=== PATIENT | female | born 1940 | race Caucasian/White ===

== ENCOUNTER 2019-04-25 09:51 | Emergency (ER) | payer OTHER, MEDICARE ==
[~2019-04-25] VITALS: Ht 170.2 cm; Wt 63.5 kg
[2019-04-25] MEDS ORDERED: NORCO 5-325 TA1 EAC1 PO (12:10)
[2019-04-25] MEDS ORDERED: KEFLEX500 M1 PO (12:10)
[2019-04-25 12:17] VITALS: BP 169/72
== END 2019-04-25 12:18 | disposition home or self-care (01) ==
LOC: ER 09:51
DX: S81.812A Laceration without foreign body, left lower leg, initial encounter (principal); Z88.5 Allergy status to narcotic agent; Z88.7 Allergy status to serum and vaccine; Z88.1 Allergy status to other antibiotic agents; Z91.048 Other nonmedicinal substance allergy status; Z88.4 Allergy status to anesthetic agent; X58.XXXA Exposure to other specified factors, initial encounter; Y92.009 Unspecified place in unspecified non-institutional (private) residence as the place of occurrence of the external cause; Y93.89 Activity, other specified; Y99.8 Other external cause status

== ENCOUNTER 2019-04-30 14:40 | Inpatient (IN) | payer OTHER, MEDICARE ==
[~2019-04-30] VITALS: Ht 175.3 cm; Wt 63.5 kg
[~2019-04-30 14:40] MED LIST: KEFLEX500 M1 PO; NORCO 5-325 TA1 EAC1 PO
[2019-04-30 15:48] VITALS: BP 178/89
--- NOTE | 2019-04-30 17:13 | NUR ---
Pt admitted to floor per as direct admit from 's office at 1530 in stable condition.Admission hx,and assessment completed.Dr Vazquez notified about pt admission to unit.He rounded on pt and order noted.Pt bp was elevated,meds will bw given as soon as verify by the pharmacy.Pt home meds inventory and sent to pharmacy.
[2019-04-30 17:24] LABS: ABSOLUTE NEUTROPHILS 3.9 thou/uL (1.4-8.2); BASOPHILS 0.6 % (0.0-2.0); EOSINOPHILS 2.4 % (0.0-3.0); HEMATOCRIT 37.9 % (37.0-47.0); HEMOGLOBIN 12.4 gm/dL (12.0-15.0); LYMPHOCYTES 12.6 % (24.0-44.0); MCH 28.5 pg (26.0-34.0); MCHC 32.9 g/dL (28.0-37.0); MCV 86.7 fL (80.0-100.0); MONOCYTES 6.8 % (1.0-8.0); PLATELET COUNT 178 thou/uL (150-400); POLYS 77.6 % (36.0-66.0); RBC 4.37 mil/uL (4.20-5.00); RDW 14.5 % (10.5-14.5)
[2019-04-30 17:37] LABS: ALBUMIN 3.1 g/dL (3.4-5.0); CALCIUM 9.6 mg/dL (8.5-10.1); CREATININE 0.8 mg/dL (0.6-1.0); POTASSIUM 4.1 mmol/L (3.5-5.1); TOTAL BILIRUBIN 0.4 mg/dL (<0.1-1.0); TOTAL PROTEIN 6.7 g/dL (6.4-8.2)
[2019-04-30 19:40] VITALS: BP 185/105
[2019-04-30 21:04] LABS: URINE BILIRUBIN NEGATIVE (Negative); URINE BLOOD NEGATIVE (Negative); URINE CLARITY CLEAR; URINE COLOR YELLOW; URINE GLUCOSE-RANDOM* NEGATIVE (Negative); URINE KETONES NEGATIVE (Negative); URINE LEUKOCYTES-REFLEX TRACE (Negative); URINE NITRITE-REFLEX NEGATIVE (Negative); URINE PROTEIN (DIPSTICK) NEGATIVE (Negative); URINE UROBILINOGEN 0.2 E.U./dl (0.2-1.0)
[2019-05-01 03:49] VITALS: BP 152/72
--- NOTE | 2019-05-01 05:00 | NUR ---
ASSUMED CARE OF PT @1900 PT ASSESSED AT START OF SHIFT WITH C/O PAIN IN LLE PAIN MEDS GIVEN SEE EMAR. PICTURE TAKEN OF WOUND AND DRESSING PLACED. URINE AND WOUND CULTURE SENT TO LAB. PT HAS HIGH BP HYDRALAZINE GIVEN EVRY Q6. PT UP AD KAYLIN TO THE BATHROOM. WILL CONT WITH POC TILL EOS.
[2019-05-01 08:03] VITALS: BP 130/71
[2019-05-01 16:35] VITALS: BP 192/99
--- NOTE | 2019-05-01 17:18 | NUR ---
ASSESSMENT-PT LIVES AT HOME ALONE. SHE IS INDEPENDENT OF ADLS AND AMBULATION. SHE DRIVES. SHE IS A RETIRED MARINE. SHE DOES ALL OF HER OWN HOUSEHOLD THINGS. SHE HAS O2 FROM [facility]. SHE HAS NO CHILDREN. PT'S ONLY CONCERN IS ABOUT GETING HER INHALER RE-ORDERED. NURSING AWARE OF THIS. FOLLOWING TO ASSIST WITH DC PLANNING.
[2019-05-01] MEDS ORDERED: TRELEGY ELLIPT1 EACH INH (17:22)
[2019-05-01] MEDS ORDERED: BENAZEPRIL HCL20 MG PO (17:22)
[2019-05-01] MEDS ORDERED: HYDROCHLOROTH12.5 M1 PO (17:23)
[2019-05-01] MEDS ORDERED: LOVASTATIN40 MG PO (17:27)
[2019-05-01] MEDS ORDERED: KLOR-CON 1010 MEQ PO (17:27)
[2019-05-01] MEDS ORDERED: VITAMIN D5000 UNIT PO (17:28)
[2019-05-01 17:59] VITALS: BP 149/67
[2019-05-01 19:45] VITALS: BP 162/81
[2019-05-01 23:46] VITALS: BP 157/77
--- NOTE | 2019-05-02 01:12 | NUR ---
ASSUMED CARE OF PT @1900 PT ASSESSED AT START OF SHIFT A&OX4 DENIES PAIN C/O NAUSEA ZOFRAN GIVEN AND EMESIS NOTED AFTERWARDS. WOUND ON LLE INTACT WITH DRESSING. ABX INFUSING. PT UP AD KAYLIN TO THE BATHROOM WILL CONT WITH POC TILL EOS
[2019-05-02 03:23] VITALS: BP 155/75
[2019-05-02 05:43] LABS: HEMOGLOBIN 12.1 gm/dL (12.0-15.0); MCH 28.2 pg (26.0-34.0); MCHC 32.8 g/dL (28.0-37.0); RBC 4.3 mil/uL (4.20-5.00); RDW 14.3 % (10.5-14.5); WBC 4.8 thou/uL (4.0-11.0)
[2019-05-02 06:13] LABS: CALCIUM 9.2 mg/dL (8.5-10.1); CREATININE 0.8 mg/dL (0.6-1.0); POTASSIUM 3.8 mmol/L (3.5-5.1)
[2019-05-02 08:02] VITALS: BP 142/57
[2019-05-02 16:44] VITALS: BP 138/64
--- NOTE | 2019-05-02 17:57 | NUR ---
Assumed patient care at 0715. Patient has been pleasant et compliant. She is wearing her oxygen at 2 Liters per nasal canula. Patient is up ad kelechi; staff has been using stand-by assist when patient has gotten up to use the toilet. She has had adequate amounts of food et fluid. She reported that she had a bowel movement "last night." Patient has urinated in the toilet 5 times during this shift. Vital signs are stable, ABD is soft et on-tender, BS x's 4, skin is clean , warm, dry et intact (except for left lower leg wound). Wound care nurse changed dressing to LLE; it is clean, warm, dry et intact. Patient complained of nausea et a headache at 0910; she was given Zofran et Tylenol for these complaints. Medications were effective. Will continue to monitor.
[2019-05-02 19:27] VITALS: BP 157/88
[2019-05-03 04:01] VITALS: BP 146/68
[2019-05-03 05:25] LABS: HEMATOCRIT 35.8 % (37.0-47.0); HEMOGLOBIN 11.9 gm/dL (12.0-15.0); MCH 28.5 pg (26.0-34.0); MCHC 33.1 g/dL (28.0-37.0); MCV 86.2 fL (80.0-100.0); RBC 4.15 mil/uL (4.20-5.00); RDW 14.2 % (10.5-14.5); WBC 5.2 thou/uL (4.0-11.0)
--- NOTE | 2019-05-03 05:37 | NUR ---
PT IS ALERT AND ORIENTED.VERY PLEASANT AND COOPERATIVE.WRAPPING TO L FOOT IS C/D/I. PT GIVEN TYLENOL FOR SOME MILD DISCOMFORT.AFEBRILE. WILL CONTINUE WITH POC TILL EOS.
[2019-05-03 05:50] LABS: CALCIUM 9.5 mg/dL (8.5-10.1); POTASSIUM 3.5 mmol/L (3.5-5.1)
[2019-05-03 06:50] VITALS: BP 141/74
--- NOTE | 2019-05-03 12:25 | HC ---
[facility] [place] [address] CONSULTATION Name: PEARL HANNON Room #: 424-P ADM IN M.R.#: [id number] Admission: 04/30/19 Attend Phys: Hamzah Vazquez MD Discharge: Date of : 38 Report #: [id number] THIS REPORT FOR: //name// CC: Jem Vazquez INFECTIOUS DISEASE CONSULTATION REASON FOR CONSULTATION: I was asked to evaluate left medial leg wound infection. HISTORY OF PRESENT ILLNESS: The patient is a 78-year-old who lacerated the medial aspect of her left leg near the ankle approximately 10 days ago. Subsequently, developed increased pain, swelling and further skin breakdown. Seen in the outpatient emergency room, placed on cephalexin. Failed to improve and was hospitalized for further care. No fever, chills or sweats. No known specific entry site from this. It occurred while she was sweeping her porch. That is when she noticed it. She has had ankle fracture with hardware in the fibula. When she was a young girl, she lacerated the medial aspect of her ankle but that incision has been well approximated and asymptomatic. She has had no history of diabetes. She has had coronary artery disease, but notes no significant peripheral vascular disease. She is a past smoker. REVIEW OF SYSTEMS: Denies any cardiopulmonary, GI or complaints. ALLERGIES: MORPHINE, NOVOCAIN, SURGICAL PREP, TETANUS, AUGMENTIN. MEDICATIONS: As noted on her OCT, now on vancomycin with a trough level 14. PAST MEDICAL HISTORY: Colon cancer, coronary artery disease, hypertension, hysterectomy, colon resection, cholecystectomy. FAMILY HISTORY: Noncontributory. SOCIAL HISTORY: Nonsmoker currently, quit about a year ago. No significant alcohol intake. Lives alone. PHYSICAL EXAMINATION: VITAL SIGNS: Afebrile and hemodynamically stable. GENERAL: She is alert and cooperative and pleasant, in no acute distress. SKIN: With an ulceration over the medial lower left leg. Mild surrounding erythema. There is no lymphangitis. There was a small amount of clear drainage. No other lesions or rashes. No palpable adenopathy. HEENT: Eyes without scleral icterus. Mouth with dentition in poor repair. NECK: Supple, no thyromegaly or mass. LUNGS: Clear. HEART: Regular without murmur, gallop or rub. [facility] [address] [place] [address] CONSULTATION Name: PEARL HANNON Room #: 424-P [facility] IN M.R.#: [id number] Admission: 04/30/19 Attend Phys: Hamzah Vazquez MD Discharge: Date of : 38 Report #: [id number] ABDOMEN: Soft and nontender with no hepatosplenomegaly or mass. EXTREMITIES: Without clubbing, cyanosis or edema. Peripheral pulses were normal. Sensation intact. Strength in the upper and lower extremities normal. NEUROLOGIC: Cranial nerves normal. Mood was normal. LABORATORY STUDIES: CBC and chemistry were unremarkable. Culture of blood and wound are pending. X-ray of the ankle shows previous bimalleolar fracture with 2 metal screws and lateral plate. IMPRESSION: A 78-year-old with right medial calf laceration, now secondary wound infection. Would typically be gram-positive organisms. She is responding to vancomycin. RECOMMENDATIONS: We will therefore continue this along with localized wound care. Once cultures are back, should be able to switch care to the outpatient setting. <ELECTRONICALLY SIGNED> By: Kev Fierro MD 05/03/19 1225 [id number] Kev Fierro MD /nt
[2019-05-03 16:26] VITALS: BP 148/89; BP 158/71
[2019-05-03 20:00] VITALS: BP 156/71
--- NOTE | 2019-05-03 20:38 | NUR ---
Assumed pt care at 7am.Pt in and out of bed to bathroom independently. Assessment completed.Vss.Pt tolerated meds and diet.Dr Trent and Vadim here,order noted.Pin went bad and new one placed by iv team.Drsg change done to lt lower extremity wound as ordered.Will continue to monitor.
--- NOTE | 2019-05-04 01:38 | NUR ---
ASSESSMENT COMPLETED.PT C/O PAIN ON HER LLE,MANAGED WITH MED.PIV ON HER L UPPERARM RED AND WARM TO TOUCH,IV DC'D NEW ONE STARTED ON HER RFA.PT UP ADLIB IN ROOM.LLE WOUND DRSG C/D/I.PT RESTING COMFORTABLY ON HER BED AT THIS TIME.CALL LIGHT WITHIN REACH.
[2019-05-04 01:43] VITALS: BP 134/65
[2019-05-04 08:24] VITALS: BP 165/81
--- NOTE | 2019-05-04 16:05 | NUR ---
Assumed pt care at 7am.Pt in and out of bed to bathroom. Assessment completed. vss but elevated bp noted.Am meds given with breakfast and well tolerated. Dr Trent and Vadim here,order noted.Drsg change done to left lower extremity as ordered.No verbal c/o at present.Will continue to monitor.
[2019-05-04 19:21] VITALS: BP 151/73
--- NOTE | 2019-05-05 03:44 | NUR ---
PATIENT ALERT AND ORIENTED X4. COOPERATIVE WITH CARE AND ENJOYS A GOOD CONVERSATION. SALINE LOCK TO RIGHT AF PATENT FOR FLUSH. UP ADLIB IN ROOM. DRESSING TO RIGHT ANKLE DRY AND INTACT. MEDICATED X1 FOR GENERALIZED PAIN. RESTING QUIETLY. WILL MONITOR.
[2019-05-05 04:25] VITALS: BP 133/71
[2019-05-05 08:00] VITALS: BP 147/82
--- NOTE | 2019-05-05 10:37 | NUR ---
PT ALERT XS 4 AMBULATES WITH STEADY GAIT. NO PAIN AT PRESENT, HAS WOUND TO LEFT ANKLE.
--- NOTE | 2019-05-05 10:50 | NUR ---
GAVE PATIENT PRN MIRALAX HAD BM Sunday05/03/19
[2019-05-05] MEDS ORDERED: CEFDINIR300 MG PO (15:02)
[2019-05-05 15:17] VITALS: BP 133/71
[2019-05-05 16:21] VITALS: BP 133/71
--- NOTE | 2019-05-05 18:13 | NUR ---
DISCHARGE PAPERS GONE OVER WITH PATIENT, IV ACSESS DCD ALL BELONGINGS PACKED AND SENT WITH PATIENT RX SENT WITH PATIENT. DR MOREJON CALLED TO COMPLETE DISCHARGE PAPERS.
[2019-05-05 18:26] VITALS: BP 133/71
[2019-05-05 18:27] VITALS: BP 133/71
== END 2019-05-05 18:33 | disposition home or self-care (01) | DRG 604 ==
LOC: 4E 14:40
PROVIDERS: Nurse Practitioner; ADMIT Hospitalist
DX: S81.812A Laceration without foreign body, left lower leg, initial encounter (principal); E43 Unspecified severe protein-calorie malnutrition; L03.116 Cellulitis of left lower limb; L97.229 Non-pressure chronic ulcer of left calf with unspecified severity; L03.115 Cellulitis of right lower limb; S81.811A Laceration without foreign body, right lower leg, initial encounter; J44.9 Chronic obstructive pulmonary disease, unspecified; I10 Essential (primary) hypertension; Z66 Do not resuscitate; E89.0 Postprocedural hypothyroidism; I25.10 Atherosclerotic heart disease of native coronary artery without angina pectoris; K21.9 Gastro-esophageal reflux disease without esophagitis; E78.5 Hyperlipidemia, unspecified; I25.2 Old myocardial infarction; Z90.49 Acquired absence of other specified parts of digestive tract; Z90.710 Acquired absence of both cervix and uterus; Z95.5 Presence of coronary angioplasty implant and graft; Z85.850 Personal history of malignant neoplasm of thyroid; Z98.42 Cataract extraction status, left eye; Z68.20 Body mass index [BMI] 20.0-20.9, adult; Z87.891 Personal history of nicotine dependence; Z98.41 Cataract extraction status, right eye; Z85.038 Personal history of other malignant neoplasm of large intestine; Z79.899 Other long term (current) drug therapy; Z88.1 Allergy status to other antibiotic agents; Z88.5 Allergy status to narcotic agent; Z88.7 Allergy status to serum and vaccine; Z88.8 Allergy status to other drugs, medicaments and biological substances; X58.XXXA Exposure to other specified factors, initial encounter; Y93.89 Activity, other specified; Y92.89 Other specified places as the place of occurrence of the external cause; Y99.8 Other external cause status; B96.20 Unspecified Escherichia coli [E. coli] as the cause of diseases classified elsewhere
CPT/HCPCS: 10783